=== PATIENT | male | born 2000 | race African-American/Black ===

== ENCOUNTER 2020-02-16 15:43 | Emergency (ER) | payer MEDICAID, OTHER ==
[~2020-02-16] VITALS: Ht 172.7 cm; Wt 73.0 kg
[2020-02-16] MEDS ORDERED: ACETAMINOPHEN 325MG TABLET PO ONE (16:15)
[2020-02-16] MEDS ORDERED: TETANUS, DIPHTHERIA, PERTUSSIS VAC/PF 0.5ML (>7YR OLD) IM ONE (16:45)
[2020-02-16] MEDS ORDERED: IBUPROFEN 600MG TABLET PO ONE (16:45)
[2020-02-16] MEDS ORDERED: BACITRACIN ZINC OINT UDPKT TOP ONE (16:45)
[2020-02-16] MEDS ORDERED: LIDOCAINE HCL/PF 1% 10 MG/ML 5ML VIAL IJ ONE (16:45)
[2020-02-16 17:31] VITALS: BP 153/96
== END 2020-02-16 18:12 | disposition home or self-care (01) ==
LOC: ER 15:54
DX: S61.214A Laceration without foreign body of right ring finger without damage to nail, initial encounter (principal); X58.XXXA Exposure to other specified factors, initial encounter; Y93.89 Activity, other specified; Y92.89 Other specified places as the place of occurrence of the external cause; Y99.8 Other external cause status
CPT/HCPCS: 12002; 90715; 99283; J3490; Z7610

== ENCOUNTER 2020-02-21 08:19 | Emergency (ER) | payer MEDICAID ==
[~2020-02-21] VITALS: Ht 172.7 cm; Wt 72.0 kg
[2020-02-21 08:34] VITALS: BP 134/77
== END 2020-02-21 09:20 | disposition home or self-care (01) ==
LOC: ER 08:19
DX: S61.411D Laceration without foreign body of right hand, subsequent encounter (principal); Z48.00 Encounter for change or removal of nonsurgical wound dressing; X58.XXXD Exposure to other specified factors, subsequent encounter
CPT/HCPCS: 99281

== ENCOUNTER 2020-02-28 12:08 | Emergency (ER) | payer MEDICAID ==
[~2020-02-28] VITALS: Ht 172.7 cm; Wt 73.0 kg
[2020-02-28 14:11] VITALS: BP 143/95
== END 2020-02-28 14:12 | disposition home or self-care (01) ==
LOC: ER 12:08
DX: S61.411D Laceration without foreign body of right hand, subsequent encounter (principal); X58.XXXD Exposure to other specified factors, subsequent encounter
CPT/HCPCS: 99281